=== PATIENT | female | born 1965 ===

== ENCOUNTER 2024-03-29 09:24 | Outpatient (CLI) | payer MEDICAID, SELFPAY ==
--- NOTE | 2024-03-29 09:36 | MM_ITS ---
WS: [id number] BILATERAL 3D TOMOSYNTHESIS DIGITAL DIAGNOSTIC MAMMOGRAPHY WITH CAD CLINICAL INFORMATION: BREAST TENDERNESS HISTORY: Bilateral breast tenderness. RIGHT breast lump. Bilateral axillary tenderness. COMPARISON: 2012 TECHNIQUE: Bilateral CC, MLO, and ML views. FINDINGS: Fatty replaced breasts bilaterally. Palpable marker RIGHT breast. Normal underlying fatty parenchymal tissue. Ultrasound is pending. Incidental punctate calcifications and cluster calcifications LEFT breast. Otherwise unremarkable LEF T breast. ULTRASOUND BREAST BILATERAL TECHNIQUE: Ultrasound bilateral breast focused area of concern. CLINICAL INFORMATION: BREAST TENDERNESS FINDINGS: RIGHT BREAST: Ultrasound RIGHT breast area of concern 1 o'clock position. Patient directed. Normal un derlying parenchymal tissue. No suspicious cystic or solid lesions in this area. RIGHT axillary ultra sound demonstrates a few prominent lymph nodes measuring up to 2.2 x 1.5 cm with preserved normal fat ty hilum and no significant cortical thickening. These are most likely reactive.. LEFT BREAST: Ultrasound LEFT axilla demonstrates a few normal-appearing lymph nodes with preserved fa tty lynn. IMPRESSION MM/MM diag BI tomosynthesis [id number] DENSITY: The breasts are almost entirely fatty. BI-RADS: 2 - Benign. FOLLOW UP: 1 Year Follow-up Recommend return to annual screening mammography.
== END 2024-03-29 09:25 | disposition home or self-care (01) ==
LOC: RAD 09:29
PROVIDERS: Family Provider Family Medicine; PCP Family Medicine; Visit Provider Internal Medicine
DX: R92.313 Mammographic fatty tissue density, bilateral breasts (principal); N64.4 Mastodynia; R92.1 Mammographic calcification found on diagnostic imaging of breast; R59.0 Localized enlarged lymph nodes
CPT/HCPCS: 76642; 77062; G0279

== ENCOUNTER → 2024-06-28 12:30 | Outpatient (BNVA) | payer MEDICAID, SELFPAY | PROVIDERS: Family Provider Family Medicine; PCP Family Medicine; Visit Provider Nurse Practitioner Family | DX: L91.8 Other hypertrophic disorders of the skin (principal); D22.5 Melanocytic nevi of trunk; D22.61 Melanocytic nevi of right upper limb, including shoulder; L30.9 Dermatitis, unspecified; L57.8 Other skin changes due to chronic exposure to nonionizing radiation; L82.0 Inflamed seborrheic keratosis; L29.89 Other pruritus; R20.8 Other disturbances of skin sensation; L53.8 Other specified erythematous conditions; Z78.9 Other specified health status | CPT/HCPCS: 17110; 99204 ==

== ENCOUNTER 2025-01-18 08:09 | Outpatient (CLI) | payer MEDICAID, SELFPAY ==
--- NOTE | 2025-01-18 17:12 | FL_ITS ---
MO barium swallow [id number] REASON FOR EXAM: Dysphagia FLUOROSCOPY TIME: 0min [id number] # OF SPOT FILMS: Multiple TECHNIQUE: Patient was in a PET and the examination was therefore limited. The swallowing of barium with the patient in the sitting lateral projection was performed under fluoroscopic monitoring with rapid sequence spot films. Patient was then placed in the prone OMER position and a swallowing of barium was fluoroscopically monitored with multiple rapid sequence spot films. FINDINGS: There is penetration of the thin liquid contrast into the laryngeal vestibule without aspiration. The remainder of the cervical esophagus was unremarkable. There was intermittent lower esophageal sphincter spasm with loss of the primary peristaltic wave and retention of contrast in the mid and distal esophagus. Intermittent tertiary contractions with mild esophageal esophageal reflux to the level of the sternal notch. Esophageal esophageal reflux to just below the sternal notch. Small hiatal hernia without constricting Schatzki ring. No constricting extrinsic or intrinsic lesion of the esophagus. IMPRESSION: Laryngeal vestibule penetration. Risk for aspiration. Thoracic esophageal dysmotility as above. Additional risk for aspiration. MTDD
== END 2025-01-18 08:10 | disposition home or self-care (01) ==
LOC: RAD 08:11
PROVIDERS: Family Provider Family Medicine; PCP Family Medicine; Visit Provider Specialist
DX: R13.19 Other dysphagia (principal); R22.1 Localized swelling, mass and lump, neck; K44.9 Diaphragmatic hernia without obstruction or gangrene; K22.4 Dyskinesia of esophagus
CPT/HCPCS: 74220